=== PATIENT | male | born 1940 | race Caucasian/White ===

== ENCOUNTER 2017-01-12 12:48 | Day surgery (SDC) | payer OTHER ==
[2017-01-12] MEDS ORDERED: LIDOCAINE 1% 300 MG/30 ML SDV SC ONE (13:30)
--- NOTE | 2017-01-12 23:53 | CPIP ---
[f rep st] INVASIVE CARDIAC PROCEDURE DATE OF PROCEDURE: 01/12/2017 PROCEDURE: Implantation of LINQ. INDICATION: The patient is 76 years old. He has a history of a single episode of atrial fibrillati on. He is referred for LINQ implantation to further quantify the total burden of atrial arrhythmias . TECHNIQUE: After informed consent and in the fasting state, the patient was brought to the CVC. Th e 4th intercostal space, immediately left of the sternum was identified. This was infiltrated with 2% lidocaine. A 1 cm incision was made. The LINQ was then injected underneath the skin. The skin was then closed with 2 almaz. There were no complications. /[id number]/MODL
== END 2017-01-12 14:00 | disposition home or self-care (01) ==
LOC: FCATH 12:48
PROVIDERS: ATTEND Internal Medicine Cardiovascular Disease
PROC: 0JH602Z Insertion of Monitoring Device into Chest Subcutaneous Tissue and Fascia, Open Approach (ICD-10-PCS; principal; 2017-01-12)
DX: I48.0 Paroxysmal atrial fibrillation (principal); I25.10 Atherosclerotic heart disease of native coronary artery without angina pectoris; E78.5 Hyperlipidemia, unspecified; I10 Essential (primary) hypertension; I25.2 Old myocardial infarction; K21.9 Gastro-esophageal reflux disease without esophagitis; Z95.5 Presence of coronary angioplasty implant and graft
CPT/HCPCS: C1764